=== PATIENT | female | born 1995 | race African-American/Black ===

== ENCOUNTER 2020-10-09 14:30 | Outpatient (CLI) | payer OTHER, SELFPAY ==
--- NOTE | 2020-10-09 14:44 | ECHO_ITS ---
Patient Info Name: Marge Myrick Age: 25 years : 1995 Gender: Female Ht: 64 in Wt: 163 lbs BSA: 1.85 m2 HR: 80 bpm BP: 148 / 95 mmHg Heart Rhythm: Sinus Rhythm Technical Quality: Good Exam Date: 10/09/2020 2:59 PM Exam Location: [facility] Patient Status: Outpatient Admit Date: 10/09/2020 Staff Ordering Physician: Nicolette Boone MD Color Shop Helper: Ab Saldivar RDCS Attending Provider: Nicolette Boone MD Exam Type: CA echo doppler color flow Study Info Indications R01.1 - Cardiac murmur, unspecified Complete two-dimensional, color flow and Doppler transthoracic echocardiogram is performed. History/Risk Factors Murmur; hypertenison. Summary 1. Complete two-dimensional, color flow and Doppler transthoracic echocardiogram is performed. 2. Left ventricular chamber dimension is normal. 3. Left ventricular systolic function is normal, estimated at 60-65%. 4. The left ventricular diastolic function is normal. 5. E/e' 6 is not elevated. 6. There is mild aortic valve sclerosis. Left Ventricle E/e' 6 is not elevated. Left ventricular chamber dimension is normal. Left ventricular systolic function is normal, estimated at 60-65%. The left ventricular diastolic function is normal. Right Ventricle Right ventricular chamber dimension is normal. Right ventricular systolic function is normal. Left Atria Left atrial chamber dimension is normal. Right Atria Right atrial chamber dimension is normal. Aortic Valve The aortic valve is trileaflet. There is mild aortic valve sclerosis. There is no aortic valve stenosis. There is no aortic valve regurgitation. Pulmonic Valve There is no pulmonic regurgitation. Mitral Valve There is no mitral valve stenosis. There is no mitral valve regurgitation. Tricuspid Valve There is no tricuspid valve regurgitation. Pericardium/Pleural There is no pericardial effusion. Inferior Vena Cava Normal inferior vena cava with >50% collapse upon inspiration consistent with normal right atrial pressure, 5 mmHg. Aorta The aortic root size at the sinus of Valsalva is normal. Left Ventricular Outflow Tract Name Value Normal LVOT 2D LVOT Diameter 2.0 cm LVOT Doppler LVOT Peak Gradient 3 mmHg LVOT Mean Gradient 2 mmHg LVOT VTI 17 cm LVOT VTI/AV VTI Ratio 0.7 LVOT Stroke Volume 55 ml LVOT CO 3.9 l/min LVOT CI 2.1 l/min/m2 Mitral Valve Name Value Normal MV Doppler MV Decel Dillon 346 cm/s2 MV PHT 75 ms MV Area (PHT) 2.9 cm2 4.0-5.0 MV Diastolic Func
== END 2020-10-09 14:31 | disposition home or self-care (01) ==
PROVIDERS: PCP Family Medicine; Visit Provider Family Medicine
DX: R01.1 Cardiac murmur, unspecified (principal)
CPT/HCPCS: 93306

== ENCOUNTER 2021-02-24 20:43 | Emergency (ER) | payer OTHER, SELFPAY ==
[2021-02-24 20:48] VITALS: BP 146/87; PULSE 72; RESP 20; TEMP 36.2; O2SAT 99
--- NOTE | 2021-02-24 20:55 | PC.NURSE ---
Attempted to remove patient's ring with use of lubricant. This was unsuccessful. Ring cutter was used. Patient tolerated well. Ring was placed in specimen cup and returned to the patient. There were no injuries noted to the left ring finger. Patient had no complaints of pain after ring removed.
--- NOTE | 2021-02-24 21:06 | PC.NURSE ---
Patient reports to this RN that she does not wish to be evaluated by the ED Provider and is leaving the ED at this time. She had no complaints at this time. Patient did leave the ED without difficulty and had all belongings with her while leaving, including the ring.
== END 2021-02-24 21:06 | disposition left against medical advice (07) ==
DX: S60.445A External constriction of left ring finger, initial encounter (principal)
CPT/HCPCS: 99199

== ENCOUNTER 2021-06-08 10:55 | Emergency (ER) | payer OTHER, SELFPAY ==
[2021-06-08 11:03] VITALS: BP 135/75; PULSE 85; RESP 16; TEMP 36.8; O2SAT 100
--- NOTE | 2021-06-08 12:23 | ED.GENADULT ---
HPI - General Adult General Chief complaint: Skin/Abscess/Foreign Body <Minh Dodson PA-C Last Filed: 06/08/21 12:33> Stated complaint: ingrown toenail <Minh Dodson PA-C - Last Filed: 06/08/21 12:33> Time Seen by Provider: 06/08/21 11:07 <Minh Dodson PA-C - Last Filed: 06/08/21 12:33> Source: patient and RN notes reviewed <ISRAEL Villareal Last Filed: 06/08/21 12:33> Mode of arrival: ambulatory <ISRAEL Villareal Last Filed: 06/08/21 12:33> Limitations: no limitations <IRSAEL Villareal Last Filed: 06/08/21 12:33> History of Present Illness HPI narrative: Patient is a 26-year-old female who presents to emergency department for evaluation of ingrown left great toe toenail patient notes aching pain along the medial margin patient has had similar occurrence in the past patient denies any fever chills nausea vomiting or other complaints presents in no distress resting comfortably in the room <Minh Dodson PA-C Last Filed: 06/08/21 12:33> Related Data Allergies/adverse reactions: Allergies Allergy/AdvReac Type Severity Reaction Status Date / Time No Known Drug Allergies Allergy Unknown Unknown Verified 06/08/21 11:02 <Minh Dodson PA-C Last Filed: 06/08/21 12:33> Review of Systems Review of Systems: All systems reviewed & are unremarkable except as noted in HPI and below <Minh Dodson PA-C Last Filed: 06/08/21 12:33> [facility] Past Medical History Medical History: Medical History Anxiety disorder, unspecified Other iron deficiency anemias <ISRAEL Villareal Last Filed: 06/08/21 12:33> Social History Social History: Social History Smoking status: Never smoker Second hand tobacco smoke exposure: No Alcohol intake: never <ISRAEL Villareal Last Filed: 06/08/21 12:33> Exam Narrative: GENERAL: Well-appearing, well-nourished, and in no acute distress. HEAD: Normocephalic, atraumatic. EYES: PERRLA and EOMI. ENT: Nares clear, no rhinorrhea or epistaxis. Mucous membranes moist. EXTREMITIES: Normal range of motion. No edema. Patient with ingrown toenail of the left great toe patient is clipped the nail down on the medial aspect of there is no erythema drainage or infection currently SKIN: Warm, dry, no rash. NEURO: No focal deficits. Alert and oriented x3. Neurovascularly intact PSYCH: Normal mood and affect. <Minh Dodson PA-C - Last Filed: 06/08/21 12:33> Course Course Emergency Course: Patient will be referred to podiatry provided with reasons to return for ingrown toenail <Minh Dodson PA-C - Last Filed: 06/08/21 12:33> Vital Signs Vital signs: Vital Signs Temperature 98.3 F 06/08/21 11:03 Pulse Rate 85 06/08/21 11:03 Respiratory Rate 16 06/08/21 11:03 Blood Pressure 135/75 06/08/21 11:03 Pulse Oximetry 100 06/08/21 11:03 Temperature 98.3 F 06/08/21 12:40 Pulse Rate 86 06/08/21 12:40 Respiratory Rate 16 06/08/21 12:40 Blood Pressure 130/72 06/08/21 12:40 Pulse Oximetry 100 06/08/21 12:40 <Minh Dodson PA-C - Last Filed: 06/08/21 12:33> Vital Signs Temperature 98.3 F 06/08/21 11:03 Pulse Rate 85 06/08/21 11:03 Respiratory Rate 16 06/08/21 11:03 Blood Pressure 135/75 06/08/21 11:03 Pulse Oximetry 100 06/08/21 11:03 Temperature 98.3 F 06/08/21 12:40 Pulse Rate 86 06/08/21 12:40 Respiratory Rate 16 06/08/21 12:40 Blood Pressure 130/72 06/08/21 12:40 Pulse Oximetry 100 06/08/21 12:40 <Shahnaz Gimenez MD - Last Filed: 06/08/21 17:13> Medical Decision Making MDM Narrative Medical decision making narrative: Patients injury or pain is consistent with musculoskeletal etiology. No signs of neurological or vascular compromise on exam. Compartments and t
[2021-06-08 12:40] VITALS: BP 130/72; PULSE 86; RESP 16; TEMP 36.8; O2SAT 100
== END 2021-06-08 12:40 | disposition home or self-care (01) ==
PROVIDERS: Emergency Provider General Practice
DX: L60.0 Ingrowing nail (principal)
CPT/HCPCS: 99281

== ENCOUNTER 2024-04-04 11:51 | Emergency (ER) | payer OTHER, BC, SELFPAY ==
--- NOTE | ~2024-04-04 | XR_ITS ---
EXAMINATION: XR chest 2V 04/04/2024 14:16 INDICATION: Patient ingested peroxide. PROCEDURE: 2 view chest COMPARISON: 07/29/2017 FINDINGS: The lungs are clear. The cardiomediastinal silhouette is within normal limits. There are no pleural effusions. There is no pneumothorax suspected. IMPRESSION: 1: NO ACUTE CARDIOPULMONARY DISEASE. Reviewed, dictated and finalized at location A.
--- NOTE | ~2024-04-04 | CT_ITS ---
EXAMINATION: CT abdomen pelvis w con DATE: 04/04/2024 16:16 INDICATION: Abdomen pain TECHNIQUE: Computed tomography (CT) of the abdomen and pelvis was performed with 100 cc Omnipaque 350 intravenous contrast. The dose-length product was 427.82 mGy-cm. Automated exposure control and iter ative reconstruction technique were employed. COMPARISON: None. FINDINGS: Lung bases are unremarkable. Heart size normal. No significant pleural or pericardial effus ion. The liver, spleen, pancreas, adrenal glands and kidneys are normal. Gallbladder is present. Nono bstructive bowel gas pattern. No significant vascular abnormality. No lymphadenopathy. No free air or free fluid. There is a 2.5 cm left ovarian cyst. Trace free fluid in the pelvis. No acute osseous ab normality. IMPRESSION: 1. No acute abdominal abnormality. Reviewed, dictated and finalized at location A.
[2024-04-04 11:56] VITALS: BP 148/94; PULSE 91; RESP 16; TEMP 37; O2SAT 100
--- NOTE | 2024-04-04 14:53 | ED.GENADULT ---
HPI - General Adult General Chief complaint: Environmental Exposure Stated complaint: swallowed peroxide on th while cleaning teeth Time Seen by Provider: 04/04/24 13:21 History of Present Illness HPI narrative: Patient is a 29-year-old healthy female here today with abdominal pain and shortness of breath. She notes that 4 days ago she had watched a tick talk that heel that explained brushing her teeth with hydrogen peroxide. She states that she put about a spoon worth of hydrogen peroxide in her mouth and brushed her teeth, she does believe she spit the majority of it out but she then went in the shower and started having foaming coming from her mouth and she was concerned that she may have consumed some of the hydrogen peroxide. She notes that since that time she has had progressive worsening symptoms which include chest pain, abdominal pain, shortness of breath. She has attempted multiple things at home including Maalox, Pepto-Bismol. She does note 1 episode of dark stools but this did occur after initiating Pepto-Bismol at home. She is currently complaining of significant epigastric abdominal pain which is nonradiating and feels distended. No prior abdominal surgeries, last menstrual cycle was about a month ago, she is on oral contraceptive pills. Related Data Allergies Allergy/AdvReac Type Severity Reaction Status Date / Time No Known Drug Allergies Allergy Unknown Unknown Verified 02/11/24 10:28 Review of Systems Review of Systems: All systems reviewed & are unremarkable except as noted in HPI and below PMFSH Past Medical History Medical History (Updated 04/04/24 @ 18:50 by Makenna Ledezma MD) Anxiety disorder, unspecified Asthma Other iron deficiency anemias Social History Social History (System 02/11/24 @ 10:28 by Deng Lopez) Smoking status: Never smoker Second hand tobacco smoke exposure: No Alcohol intake: never Substance use type: does not use Exam Narrative: GENERAL: Well-appearing, well-nourished, and in no acute distress. HEAD: Normocephalic, atraumatic. EYES: PERRLA and EOMI. ENT: Nares clear. Mucous membranes moist. NECK: Supple. CHEST: Clear to auscultation. No respiratory distress. HEART: Regular rate and rhythm. Normal peripheral pulses. ABDOMEN: Soft, Epigastric tenderness, tearful on palpation of her abdomen. EXTREMITIES: Normal range of motion. No edema. SKIN: Warm, dry, no rash. NEURO: No focal deficits. Alert and oriented x3. PSYCH: Normal mood and affect. Course Course Emergency Course: Chart review performed, patient here with abdominal pain and shortness of breath after ingesting Pepto-Bismol. Triage vitals show hypertension, otherwise normal. Patient seen evaluated, does not appear to be any acute distress. She is quite tender on exam. Will do basic lab work, CT abdomen pelvis, Zofran, Protonix. Suspect she may have a gastritis, less likely gastric perforation from accidental consumption of a small amount of hydrogen peroxide. Less likely pancreatitis, cholecystitis. Patient agreeable to workup and plan. White blood cell count of 4.1, electrolytes grossly normal. Lactic normal. Lipase normal. Normal LFTs. UA negative for UTI. CT abdomen pelvis negative. No free air appreciated. Will do GI cocktail and bentyl. Patient re-evaluated after treatment, feeling much better at this time. Will send in Carafate, Protonix, Levsin, Zofran to her pharmacy. Advised did slowly to advance her diet as tolerated. She should contact her PCP tomorrow to coordinate close follow up and return if she worsens. The results of pertinent diagnostic studies and exam findings were discussed. The patient?s provisional diagnosis and plan of care were discussed with the patient and present family. The patient and/or present family expressed understanding of the diagnosis and plan. The nurse was instructed to provide written instructions and appropriate follow-up information. The tevin
[2024-04-04] MEDS: ONDANSETRON INJ 4 MG/2 ML VIAL IV PUSH (15:04)
[2024-04-04] MEDS: PANTOPRAZOLE SODIUM IV 40 MG VIAL IV PUSH (15:04)
[2024-04-04 15:40] LABS: Basophils Percent Auto 0.2 % (0.2-1.2); Eosinophils Percent Auto 0.2 % (0-4.4); Hematocrit 42.3 % (37.0-47.0); Hemoglobin 14.3 g/dL (12.0-15.0); Immature Granulocyte Absolute 0.01 K/mm3 (0.00-0.031); Immature Granulocyte Percent A 0.2 % (0-0.5); Lymphocytes Absolute Auto 1.67 K/mm3 (0.9-3.2); Lymphocytes Percent Auto 40.5 % (18.3-44.2); Mean Corpuscular HGB Conc 33.8 g/dl (32-36); Mean Corpuscular Hemoglobin 30.7 pg (26-34); Mean Corpuscular Volume 90.8 fl (80-100); Monocytes Absolute Auto 0.4 K/mm3 (0.1-0.6); Neutrophils Percent Auto 48.9 % (45.5-73.1); Platelet Count Result 219 k/mm3 (150-375); Red Blood Count 4.66 M/mm3 (4.2-5.4); Red Cell Distribution Width 12.2 % (11.5-14.5); White Blood Count 4.1 K/mm3 (4.5-10.0)
[2024-04-04 15:41] LABS: Appearance Urine Cloudy (Clear); Bacteria Urine 1+ /hpf; Bilirubin Urine Negative (Negative); Blood Urine Negative (Negative); Color Urine Dark Yellow (Yellow); Glucose Urine UA Negative (Negative); Ketones Urine 2+ mg/dL (Negative); Leukocyte Esterase Ur Negative LEU/UL (Negative); Nitrate Urine Negative (Negative); Non Pathogenic Casts 0-2; Protein Urine Trace mg/dL (Negative); Squamous Epithelial Cell Urine Occasional /hpf (Few); WBC Urine 0-5 /hpf (0-3)
[2024-04-04 15:43] LABS: Lactic Acid Reflex 0.8 mmol/L (0.7-2.0)
[2024-04-04 15:44] LABS: Alanine Aminotransferase 31 U/L (6-35); Albumin Level 4.2 g/dL (3.5-5.1); Alkaline Phosphatase 50 U/L (38-126); Anion Gap 10 mmol/L (4-12); Aspartate Amino Transferase 30 U/L (14-36); Bilirubin,Total 0.4 mg/dL (0.2-1.3); Blood Urea Nitrogen 8 mg/dL (7-17); Calcium 8.7 mg/dL (8.4-10.2); Carbon Dioxide 21 mmol/L (22-30); Chloride 106 mmol/L (98-107); Estimated CRCL calculation 94 ml/min; Estimated Glomerular Filt Rate > 60; Glucose 86 mg/dL (65-110); Lipase 60 U/L (23-300); Potassium 3.6 mmol/L (3.4-5.0); Sodium 137 mmol/L (137-145)
[2024-04-04 15:50] LABS: Add Urine Microscopic? YES; Specific Grav Ur 1.032 (1.001-1.035)
[2024-04-04] MEDS: BELLADONNA ALK/PHENOB ELIX 10 ML, MAG HYDROX/ALUMINUM HYD/SIMETH 30 ML, LIDOCAINE HCL 2... PO (18:11)
[2024-04-04] MEDS: DICYCLOMINE HCL INJ 20 MG/2 ML VIAL IM (18:12)
[2024-04-04 19:00] VITALS: PULSE 68; RESP 16; O2SAT 98
== END 2024-04-04 19:01 | disposition home or self-care (01) ==
PROVIDERS: Emergency Provider Student in an Organized Health Care Education/Training Program; PCP Family Medicine
DX: K29.00 Acute gastritis without bleeding (principal); R10.13 Epigastric pain; F41.9 Anxiety disorder, unspecified; J45.909 Unspecified asthma, uncomplicated; D64.9 Anemia, unspecified
CPT/HCPCS: 36415; 71046; 74177; 80053; 81001; 81025; 83605; 83690; 85025; 96372; 96374; 96375; 99284; A9270; C9113; J0500; J2405; Q9967

== ENCOUNTER 2025-07-02 12:27 | Emergency (ER) | payer BC, SELFPAY ==
--- NOTE | ~2025-07-02 | XR_ITS ---
XR orbits min 4V 07/02/2025 13:05 INDICATION: Trauma to right face PROCEDURE: 4 views orbits COMPARISON: No prior studies for comparison. FINDINGS: Fracture, dislocation or subluxation is not identified. The soft tissues appear within normal limits. No foreign bodies are identified. IMPRESSION: 1: NO ACUTE BONE OR JOINT ABNORMALITY IDENTIFIED. Reviewed, dictated and finalized at location O.
[2025-07-02 12:38] VITALS: BP 137/100; PULSE 69; RESP 16; TEMP 36; O2SAT 99
--- NOTE | 2025-07-02 12:50 | ED.GENADULT ---
HPI - General Adult General Chief complaint: Headache Stated complaint: HEAD INJURY Source: patient Mode of arrival: ambulatory Limitations: no limitations History of Present Illness HPI narrative: Pt presents for evaluation of pain in right supraorbital region. She was playing basketball 3 days ago in another player's head hit her in the affected area. She was wearing glasses at the time of the collision. No LOC. She is not on blood thinners. She now has pain, bruising and swelling. She rates her pain as 9/10 in severity. She has tried tylenol and ibuprofen for her symptoms. She reports some blurred vision. Related Data Allergies Allergy/AdvReac Type Severity Reaction Status Date / Time No Known Drug Allergies Allergy Unknown Unknown Verified 07/02/25 12:38 Review of Systems Review of Systems: CONSTITUTIONAL: Denies fever, chills, or sweats. EYES: Denies visual changes, redness, or discharge. ENT: Denies rhinorrhea, congestion, sore throat, or otalgia. CARDIOVASCULAR: Denies chest pain, palpitations, or edema. RESPIRATORY: Denies cough or dyspnea. GASTROINTESTINAL: Denies abdominal pain, nausea, vomiting, or diarrhea. GENITOURINARY: Denies dysuria or hematuria. SKIN: Reports bruising to the right supraorbital region MUSCULOSKELETAL: Reports pain and swelling to the right supraorbital region NEUROLOGIC: Denies headache, numbness, dizziness, or weakness. PSYCHIATRIC: Denies anxiety or depression. PMFSH Past Medical History Medical History Asthma Anxiety disorder, unspecified Other iron deficiency anemias Surgical History Surgical History No pertinent past surgical history Family History Family History Mother Family history non-contributory Social History Social History Smoking status: Never smoker Second hand tobacco smoke exposure: No Alcohol intake: never Substance use type: does not use Gender identity (if verbalized by the patient): Female Spiritual care concerns: No Exam Narrative: GENERAL: Well-appearing, well-nourished, and in no acute distress. HEAD: Normocephalic. There is trace swelling noted to right supraorbital region EYES: PERRLA and EOMI. ENT: Nares clear, no rhinorrhea or epistaxis. Mucous membranes moist. Oropharynx without tonsillar hypertrophy exudate or other lesions. Bilateral TMs pearly chase nonbulging NECK: Supple. No adenopathy or masses. No carotid bruits or JVD CHEST: Clear to auscultation. No respiratory distress. No wheezes rales or rhonchi HEART: Regular rate and rhythm. No murmur heard. Normal peripheral pulses. ABDOMEN: Soft, nontender, nondistended, normal active bowel sounds. EXTREMITIES: Normal range of motion. No edema. SKIN: There is mild ecchymosis noted to the right supraorbital region. Warm, dry, no rash. NEURO: No focal deficits. Alert and oriented x3. PSYCH: Normal mood and affect. Course Course Emergency Course: This is a 30-year-old female who presented for evaluation of pain, swelling, and bruising to the right supraorbital region. X-ray negative for fracture. Exam is consistent with contusion. CTs preferred modality however I have low clinical suspicion for fracture. She could follow up if pain persits to determine whether additional testing as clinically warranted. Patient may ice affected area and take NSAIDs as needed. Patient in agreement with plan of care. Level of Care: Express Care Visit Vital Signs Vital signs: Vital Signs Temperature 36.0 C L 07/02/25 12:38 Pulse Rate 69 07/02/25 12:38 Respiratory Rate 16 07/02/25 12:38 Blood Pressure 137/100 H 07/02/25 12:38 Pulse Oximetry 99 07/02/25 12:38 Temperature 36.0 C L 07/02/25 12:38 Pulse Rate 69 07/02/25 12:38 Respiratory Rate 16 07/02/25 12:38 Blood Pressure 137/100 H 07/02/25 12:38 Pulse Oximetry 99 07/02/25 12:38 Medical Decision Making Vital Signs Vital Signs: Vital Signs Temperature 36.0 C L 07/02/25 12:38 Pulse Rate 69 07/02/25 12:38 Respiratory Rate 16 07/02/25 12:38 Blood Pressure 137/100 H 07/02/25 12:38 Pulse Oximetry 99 07/02/25 12:38 Temperature 36.0 C L 07/02/25 12:38 Pulse Rate 69 07/02/25 12:38 Respiratory Rate 16 07/02/25 12:38 Blood Pressure 137/100 H 07/02/25 12:38 Pulse Oximetry 99 07/02/25 12:38 Imaging Data Radiologist's impression: XR orbits min 4V 07/02/2025 13:05 INDICATION: Trauma to right face PROCEDURE: 4 views orbits COMPARISON: No prior studies for comparison. FINDINGS: Fracture, dislocation or subluxation is not identified. The soft tissues appear within normal limits. No foreign bodies are identified. IMPRESSION: 1: NO ACUTE BONE OR JOINT ABNORMALITY IDENTIFIED. Discharge Plan Discharge Clinical Impression: Contusion of face Patient Disposition: Home Condition: Stable Instructions: Antibiotic Form, Contusion in Adults (ED) Patient Language: Greenlandic Prescriptions: No Action norethindrone-e.estradiol-iron [Junel FE 11/29 (28)] 1 mg-20 mcg (21)/75 mg (7) tablet 1 tablet PO DAILY Qty: 84 0RF Rx Instructions: LAST REFILL UNTIL SEEN Follow-up/Referrals: Harry Cheatham MD [Physician, Family Practice] Stand Alone Forms: Work/School Release IP Time of Disposition: 13:41
== END 2025-07-02 13:44 | disposition home or self-care (01) ==
PROVIDERS: Emergency Provider Nurse Practitioner
DX: S00.83XA Contusion of other part of head, initial encounter (principal); W50.0XXA Accidental hit or strike by another person, initial encounter; Y93.67 Activity, basketball; J45.909 Unspecified asthma, uncomplicated
CPT/HCPCS: 70200; 99213; G0463